=== PATIENT | female | born 1965 | race Caucasian/White ===

== ENCOUNTER 2022-03-20 10:14 | Emergency (ER) | payer OTHER ==
[~2022-03-20] VITALS: Ht 157.4 cm; Wt 79.4 kg
[~2022-03-20 10:14] MED LIST: ACYCLOVIR800 MG PO; ATIVAN1 MG PO; B12,B-12,B 12500 MC1 PO; Carafate1 GM/10 ML PO; DIFLUCAN50 MG PO; HYDROCODONE BIT1 T11 PO; LYRICA25 MG PO; LYRICA300 MG PO; NEXIUM20 MG PO; NORFLEX100 MG PO; NORTRIPTYLINE25 MG PO; NYSTATIN100000 U/M PO; PREDNISONE10 MG PO; PRILOSEC OTC20 MG PO; PRILOSEC20 M2 PO; SIMVASTATIN5 MG PO; ZITHROMAX250 MG PO
[2022-03-20 11:09] LABS: BASO % 0.5 % (0.0-1.0); EOS # 0.1 10*3/uL (0.0-0.4); EOS % 1.5 % (1.0-4.0); HEMATOCRIT 38.1 % (37.0-47.0); LYMPH # 1.9 10*3/uL (1.3-4.4); LYMPH % 29.7 % (27.0-41.0); MEAN CELL VOLUME 89.9 fl (81.0-99.0); MEAN CORPUSCULAR HGB 29.5 pg (27.0-31.0); MEAN CORPUSCULAR HGB CONC 32.8 g/dl (33.0-37.0); MEAN PLATELET VOLUME 10.1 fl (9.6-12.3); MONO # 0.5 10*3/uL (0.1-1.0); MONO % 7.6 % (3.0-9.0); NEUT # 3.9 10*3/uL (2.3-7.9); NEUT % 60.5 % (47.0-73.0); PLATELET COUNT AUTOMATED 267 10*3/uL (130-400); RED BLOOD COUNT 4.24 10*6/uL (4.10-5.10); RED CELL DISTRI WIDTH 13.3 % (0-14.5); WHITE BLOOD COUNT 6.5 10*3/uL (4.8-10.8)
[2022-03-20 11:21] LABS: BUN 21 mg/dl (7-24); CHLORIDE 112 mmol/L (98-107); CREATININE 0.72 mg/dL (0.55-1.02); POTASSIUM 4.1 mmol/L (3.5-5.1); SODIUM 142 mmol/L (136-145)
== END 2022-03-20 14:16 | disposition home or self-care (01) ==
LOC: ED 10:14
PROVIDERS: Emergency Medicine
DX: K08.89 Other specified disorders of teeth and supporting structures (principal); Z88.8 Allergy status to other drugs, medicaments and biological substances; Z79.899 Other long term (current) drug therapy; Z98.890 Other specified postprocedural states; Z90.89 Acquired absence of other organs; Z98.51 Tubal ligation status

== ENCOUNTER 2022-09-06 11:37 | Emergency (ER) | payer OTHER ==
[~2022-09-06] VITALS: Ht 157.4 cm; Wt 88.5 kg
[2022-09-06 12:39] LABS: BASO % 0.6 % (0.0-1.0); EOS # 0.1 10*3/uL (0.0-0.4); EOS % 1.5 % (1.0-4.0); HEMATOCRIT 42.9 % (37.0-47.0); LYMPH # 1.8 10*3/uL (1.3-4.4); LYMPH % 37.2 % (27.0-41.0); MEAN CELL VOLUME 91.3 fl (81.0-99.0); MEAN CORPUSCULAR HGB 29.6 pg (27.0-31.0); MEAN CORPUSCULAR HGB CONC 32.4 g/dl (33.0-37.0); MEAN PLATELET VOLUME 10.2 fl (9.6-12.3); MONO # 0.4 10*3/uL (0.1-1.0); MONO % 8.6 % (3.0-9.0); NEUT # 2.5 10*3/uL (2.3-7.9); NEUT % 51.9 % (47.0-73.0); PLATELET COUNT AUTOMATED 312 10*3/uL (130-400); RED CELL DISTRI WIDTH 13.3 % (0-14.5); WHITE BLOOD COUNT 4.8 10*3/uL (4.8-10.8)
[2022-09-06 12:54] LABS: ALKALINE PHOSPHATASE 72 U/L (46-116); BUN 14 mg/dl (9-23); CHLORIDE 105 mmol/L (98-107); LIPASE 51 U/L (12-53); SGPT/ALT 26 U/L (10-49); TOTAL PROTEIN 7.4 gm/dL (6.0-8.0)
[2022-09-06] MEDS ORDERED: CARAFATE1 G1 PO (13:54)
== END 2022-09-06 14:06 | disposition home or self-care (01) ==
LOC: ED 11:37
PROVIDERS: Emergency Medicine
DX: K21.00 Gastro-esophageal reflux disease with esophagitis, without bleeding (principal); Z88.5 Allergy status to narcotic agent; Z88.8 Allergy status to other drugs, medicaments and biological substances; Z98.51 Tubal ligation status; Z90.89 Acquired absence of other organs; Z98.890 Other specified postprocedural states

== ENCOUNTER → 2022-09-12 | Outpatient (CLI) | payer OTHER ==
[~2022-09-12] MED LIST changes: +CARAFATE1 G1 PO; +LEVOTHYROXINE75 MCG PO; +NORVASC5 MG PO
== END | disposition home or self-care (01) ==
LOC: US 09:00
PROVIDERS: ATTEND Surgery
DX: K76.0 Fatty (change of) liver, not elsewhere classified (principal)

== ENCOUNTER → 2022-09-19 | Day surgery (SDC) | payer OTHER ==
[~2022-09-19] VITALS: Ht 157.4 cm; Wt 86.2 kg
[~2022-09-19] MED LIST changes: +AMOXICILLIN500 M3 PO; +CLARITHROMYCIN500 MG PO
[2022-09-19 09:10] VITALS: BP 105/65
[2022-09-19 09:55] VITALS: BP 95/55
[2022-09-19 10:10] VITALS: BP 97/62
[2022-09-19 10:23] VITALS: BP 99/64
== END | disposition home or self-care (01) ==
LOC: SDC 09-15 08:45
PROVIDERS: ATTEND Surgery
DX: R10.13 Epigastric pain (principal); K21.9 Gastro-esophageal reflux disease without esophagitis; E78.00 Pure hypercholesterolemia, unspecified; M79.7 Fibromyalgia; Z88.5 Allergy status to narcotic agent; Z88.8 Allergy status to other drugs, medicaments and biological substances; Z79.899 Other long term (current) drug therapy

== ENCOUNTER 2023-09-16 17:27 | Emergency (ER) | payer OTHER ==
[~2023-09-16 17:27] MED LIST changes: +PRILOSEC20 M1 PO; -PRILOSEC20 M2 PO
[2023-09-16] MEDS ORDERED: SODIUM CHLORIDE 0.9% 1,000 ML IV ONE (18:55)
[2023-09-16] MEDS ORDERED: Ondansetron Hydrochloride 4 MG/2 ML VIAL IV ONE (18:55)
[2023-09-16 19:09] LABS: BASO % 0.2 % (0.0-1.0); EOS # 0.1 10*3/uL (0.0-0.4); EOS % 0.8 % (1.0-4.0); HEMATOCRIT 33.7 % (37.0-47.0); LYMPH # 1.6 10*3/uL (1.3-4.4); LYMPH % 26.4 % (27.0-41.0); MEAN CELL VOLUME 92.3 fl (81.0-99.0); MEAN CORPUSCULAR HGB 28.2 pg (27.0-31.0); MEAN CORPUSCULAR HGB CONC 30.6 g/dl (33.0-37.0); MEAN PLATELET VOLUME 10.6 fl (9.6-12.3); MONO # 0.4 10*3/uL (0.1-1.0); MONO % 6.4 % (3.0-9.0); NEUT # 4.1 10*3/uL (2.3-7.9); NEUT % 65.6 % (47.0-73.0); PLATELET COUNT AUTOMATED 287 10*3/uL (130-400); RED BLOOD COUNT 3.65 10*6/uL (4.10-5.10); RED CELL DISTRI WIDTH 13.5 % (0-14.5); WHITE BLOOD COUNT 6.2 10*3/uL (4.8-10.8)
[2023-09-16] MEDS ORDERED: IOHEXOL 300 MG/ML 100 ML VIAL IV ONE (19:10)
[2023-09-16 19:31] LABS: ALKALINE PHOSPHATASE 57 U/L (46-116); BUN 9 mg/dl (9-23); CHLORIDE 112 mmol/L (98-107); LIPASE 42 U/L (12-53); POTASSIUM 3.6 mmol/L (3.4-5.1); SGPT/ALT 9 U/L (5-49); TOTAL PROTEIN 6.4 gm/dL (6.0-8.0)
[2023-09-16] MEDS ORDERED: ONDANSETRON HYDR8 MG PO (19:54)
[2023-09-16] MEDS ORDERED: ARMOUR THYROID90 M1 PO (19:56)
[2023-09-16 20:11] LABS: BILIRUBIN Negative (Negative); BLOOD Negative (Negative); CLARITY Cloudy (Clear); COLOR Yellow (Yellow); GLUCOSE Negative (Negative); KETONE Trace (Negative); LEUKO ESTERASE Trace (Negative); NITRITE Negative (Negative); PH 5.5 (4.5-8.0); SPECIFIC GRAVITY >= 1.030 (1.001-1.030); UROBILINOGEN 0.2 E.U./dl (0.0-1.0)
[2023-09-16 20:19] LABS: BACTERIA 2+; MUCOUS 2+; RBC 0-2 rbc/hpf (0-2)
[2023-09-16] MEDS ORDERED: METRONIDAZOLE500 M1 PO (21:01)
[2023-09-16] MEDS ORDERED: CIPRO500 MG PO (21:01)
[2023-09-16] MEDS ORDERED: Ciprofloxacin Hydrochloride 500 MG TAB PO ONE (21:05)
[2023-09-16] MEDS ORDERED: METRONIDAZOLE 500 MG TAB PO ONE (21:05)
[2023-09-17] MEDS ORDERED: METRONIDAZOLE500 M1 PO (10:20)
[2023-09-17] MEDS ORDERED: CIPRO500 MG PO (10:20)
== END 2023-09-16 21:32 | disposition home or self-care (01) ==
LOC: ED 17:27
PROVIDERS: Physician Assistant Medical
DX: M79.3 Panniculitis, unspecified (principal); K21.9 Gastro-esophageal reflux disease without esophagitis; M79.7 Fibromyalgia; Z88.6 Allergy status to analgesic agent; Z88.5 Allergy status to narcotic agent; Z88.8 Allergy status to other drugs, medicaments and biological substances; Z90.89 Acquired absence of other organs; Z98.51 Tubal ligation status; Z98.890 Other specified postprocedural states